=== PATIENT | female | born 1965 | race Caucasian/White ===

== ENCOUNTER → 2023-10-22 13:35 | Outpatient (REF) | payer OTHER, SELFPAY | LOC: RAD 13:35 | PROVIDERS: ATTENDING PHYSICIAN Specialist; FAMILY PHYSICIAN Nurse Practitioner Adult Health | DX: R80.9 Proteinuria, unspecified (principal); R79.89 Other specified abnormal findings of blood chemistry; I10 Essential (primary) hypertension | CPT/HCPCS: 76770 ==

== ENCOUNTER → 2024-08-27 14:14 | Outpatient (REF) | payer OTHER, SELFPAY | LOC: HWWDC 14:14 | PROVIDERS: ATTENDING PHYSICIAN Nurse Practitioner Adult Health | DX: Z12.31 Encounter for screening mammogram for malignant neoplasm of breast (principal) | CPT/HCPCS: 77063; 77067 ==

== ENCOUNTER → 2024-09-14 08:39 | Outpatient (REF) | payer OTHER, SELFPAY ==
--- NOTE | 2024-07-23 14:35 | PN.DIAED02 ---
Referral
DSME Class Series Code: [id number]
Referred For: Diabetes Self-Management Training, Medical Nutrition Therapy, Self-Blood Glucose Monitoring, Long-Term Complication Instruction, Accute Complication Instruction, Continuous Glucose Monitoring, Medication management, Disease Management
PHI Release Authorization Form Signed: Yes
Demographic
Patient's primary language-: Luxembourgish
Education: College degree
Occupation: Retired
- Social
Primary Support Person: Self
Primary Care Takers: Self
Living Arrangements: Self
- Learning Methods
Preferred Method: Lecture/audio, Hands-on demonstration
Barriers to Learning: None
Glycemic Control
- Blood Glucose Monitoring Assessment
Date: 05/28/24 (FBS 118 mg/dL)
Blood glucose monitoring at home: Yes (Old meters at home, has Dexcom G7 but wears only intermittently)
Monitor Brands: Other (multiple Contour meters at home with strips)
Frequency: rarely
Patient uses Alternate Site Testing: No
- Ketone Monitoring Assessment
Patient monitoring ketone: No
- Hyperglycemia Assessment
Experiences Hyperglycemia: No
- Hypoglycemia Assessment
Patient carries glucose source: No (reviewed hypoglycemia management and encouraged carrying a source of glucose at all times)
Patient experiences hypoglycemia: No
Patient has required treatment by others: No
- Blood Glucose Monitoring Results
Source: self-report (rarely checks blood glucose and only wears Dexcom G7 due to high cost of co-pay)
- Hemoglobin A1c
Date: 03/13/24
A1C Percentage (%): 6.8
Medical History of Diabetes
Family Diabetes History: Unknown
Previous Diabetes Education: Yes
How long ago?: 1-5 years ago
Previous visit with Dietitian: No
Complications/Comorbidity/Specialist: Cataracts (surgery 2 weeks ago and next eye scheduled for 09-22-23), Diabetic Neuropathy (pain, numbness, weakness in fingers, toes & legs), Gastrointestinal disease (reflux: Prilosec OTC), Hypertension (Atenolol
25 mg daily & linsinopril 2.5 mg daily), Hyperlipidemia (Crestor 40 mg daily), Kidney / bladder disease (followed by a rn occupational health: lisinopril 25 mg daily & Farxiga 5 mg daily), Liver disease (followed by cut and cover line worker)
- Female Specific Medical History
Currently ?: No
Current Home Medication
- Insulin Management
Patient adjusts own insulin dosages: No (Lantus 16 units once a day)
Measures
- Anthropometrics
Height: 5 ft 5 in
Actual Weight: 210 lb
- Blood Pressure / Pulse
Blood pressure: 116/73
Pulse: 80
- Diabetes Management
Medical Management for Diabetes: Complete physical exam (07-20-2024), Dental exam (06-10-24), Dilated eye exam (04-03-2024: cataract surgey 2 weeks ago), Pneumonia vaccination (07-20-2024)
Self-Care
- Tobacco Usage
Do you now, or have you ever smoked?: Never smoked
- Alcohol & Drugs Usage
Drinks Alcohol: Yes
Amount/day: Social Occasions
- Meals & Dining
Meals & Dining: Patient skips meals: Yes, Food Intolerance / Allergy: Yes (Bannanas), Cultural / Yarsanism Dietary Needs: No
Primary Food Social Psychologist: Self
Primary Buffet Runner: Self (frequently buys pre-packaged and prepared foods)
Dining Out Frequency: 4-6x per week
- Physical Activity
Physical Limitation: No
Patient participates in physical Activity: No
- Patient-Self Assessment
Diabetes Knowledge: Good
Feelings About Diabetes: Acceptance
General Health: Fair
Importance of Health: Somewhat
Stress Level: Low
Diabetes Interferes With:: Family/social activities
Barriers to Diabetes Management: Nothing
Depression Survey Score: 2
- Diabetes Identification
Carries Diabetes Identification: No
Care Plan
- Education Needs
Patient Education Needs: Diabetes disease process, Chronic complications, Acute complications, Medication, Monitoring, Physical activity, Nutritional management, Goal setting & problem solving
Recommended Diabetes Training Program based on assessment: Outpatient Diabetes Education Program
Patient Call Notes
- Patient Call Notes
Evaluated By: Registered Nurse
Patient Note Types: Patient initiated call
Notes:
Karolyn presented for her initial assessment prior to the September, DSME day session. She was referred by her primary care doctor and she had attended an DSME program 3 years ago. Her A1c from 03-13-24 is 6.8%. She currently takes the following
medications for her diabetes management: Lantus 16 units daily, Ozempic 2 mg, Farxiga 5 mg daily and Metformin 1000 mg daily. Currently, Karolyn is not wearing her Dexcom G7 sensor as she has a high co-pay therefore, only wears it sporadically. She
rarely checks her blood glucose levels but does have multiple meters at home. I discussed times to monitor the blood glucose levels as well as encouraged her to wear the Dexcom sensor more frequently to aide in her diabetes management. Karolyn lives
alone and frequently buys pre-packaged foods and does not exercise. We reinforced the importance of reviewing the food label as well as adding exercise into her daily lifestyle. Karolyn denied having frequent low blood sugars. We reviewed hypoglycemia
recognition and treatment and importance of always having rapid acting glucose if necessary, especially if she increases her activity. I gave Karolyn a new Contour next EZ glucometer and reviewed proper the set up and usage. Prescriptions to be sent
by BECKY to [facility] pharmacy.
--- NOTE | 2024-07-23 15:28 | PN.DIAED04 ---
Education Record
- Education Record
Class Attended: Other
[facility] Class [facility] Code: [id number]
Instructor: Nurse Practitioner
Pre-Program Knowledge: Demonstrates competency
Pre-Test Score (%): 87.5
Goals
- Goal 1
Being Active: Exercise 30 minutes-5 times per week (Karolyn stated she would like to start with 30 minutes 3 times a week as she is not doing any activity now)
Goals To Be Evaluated: Exercise 30 mins-5x/week
- Goal 2
Healthy Eating: Make better food choices (Currently eating out and buying pre-packaged foods to just heat up)
Goals To Be Evaluated: Make better food choices
- Goal 3
Monitoring: Monitor more often (Plan to increase use of Dexcom G7 or monitor bg daily if Dexcom is not in use)
Goals To Be Evaluated: Monitor more often
--- NOTE | 2024-09-15 13:25 | PN.DIAED14 ---
This is to notify you that your patient with diabetes, DEIDRE SAENZ ( 1965), has enrolled in our diabetes self-management classes that are being held at [facility].
These classes will include an introduction to diabetes, diet, medication, exercise and prevention of complications. At the end of our class series, you will receive a report of your patient's participation and progress for your records.
Please contact me at the [facility], , if there is any particular information regarding your patient that might be helpful to me.
Sincerely,
Peng PENA-RENU,[facility]
--- NOTE | 2024-09-15 13:25 | PN.DIAED04 ---
Addendum entered and electronically signed by Conchita Rucker 09/16/24 11:47:
Outpatient Diabetes Education Program:
Class 1 (120 minutes)
Describe the diabetes disease process and treatment options
Diabetes management
Develop personal strategies to promote health and behavior change
Integrate psychosocial adjustment for daily living
Monitor blood glucose and other parameters. Interpret and use the results for self-management decision making
Prevent, detect, and treat acute complications
Original Note:
Education Record
- Education Record
Class Attended: Class 1
DSME Class Series Code: [id number]
Instructor: Nurse Practitioner
Class Length (mins): 120
Post-Class 1 Test Score (%): 100
== END ==
LOC: DES 08:39
PROVIDERS: ATTENDING PHYSICIAN Nurse Practitioner Adult Health
DX: E11.65 Type 2 diabetes mellitus with hyperglycemia (principal)
CPT/HCPCS: 99078

== ENCOUNTER → 2024-09-21 12:53 | Outpatient (REF) | payer OTHER, SELFPAY | LOC: DES 12:53 | PROVIDERS: ATTENDING PHYSICIAN Nurse Practitioner Adult Health | DX: E11.65 Type 2 diabetes mellitus with hyperglycemia (principal) | CPT/HCPCS: 99078 ==

== ENCOUNTER → 2024-09-28 08:42 | Outpatient (REF) | payer OTHER, SELFPAY | LOC: DES 08:42 | PROVIDERS: ATTENDING PHYSICIAN Nurse Practitioner Adult Health | DX: E11.65 Type 2 diabetes mellitus with hyperglycemia (principal) | CPT/HCPCS: 99078 ==

== ENCOUNTER → 2024-10-05 09:57 | Outpatient (REF) | payer OTHER, SELFPAY ==
--- NOTE | 2024-10-06 10:26 | PN.DIAED04 ---
Education Record
- Education Record
Class Attended: Class 4
DSME Class Series Code: [id number]
Instructor: Nurse Practitioner (BECKY Moncada)
Class Curriculum:
Outpatient Diabetes Education Program:
Class 4 (120 minutes)
Develop personal strategies to promote health and behavior change
Incorporate physical activity into lifestyle
Utilize medications safety for maximum therapeutic effectiveness
Understand different medication/insulin mechanism of action
Preparing for travel
Class Length (mins): 120
Post-Class 4 Test Score (%): 100
== END ==
LOC: DES 09:57
PROVIDERS: ATTENDING PHYSICIAN Nurse Practitioner Adult Health
DX: E11.65 Type 2 diabetes mellitus with hyperglycemia (principal)
CPT/HCPCS: 99078

== ENCOUNTER → 2024-10-12 10:51 | Outpatient (REF) | payer OTHER, SELFPAY ==
--- NOTE | 2024-10-14 11:51 | PN.DIAED16 ---
This is to notify you that your patient with diabetes, DEIDRE SAENZ ( 1965), has attended the entire series of Diabetes Self-Management Education Classes.
Class 1 (120 minutes): Diabetes Overview - monitoring, stress/psychosocial adjustment, support, goal setting
Class 2 (120 minutes): Meal Planning - serving sizes, menu plans
Class 3 (120 minutes): Introduction to Carbohydrate Counting, Analyzing Food Labels
Class 4 (120 minutes): Medication, Exercise and Activity
Class 5 (120 minutes): Sick Day Management, Strategies to Reduce Complications, Problem Solving, Resources
The following behavioral goals were identified:
Exercise 30 mins-5x/week
Make better food choices
Monitor more often
A follow-up call will be made within three to six months to evaluate attainment of these goals and to check post-program Hemoglobin A1c and overall progress. All class participants are encouraged to contact me if I can be any further assistance in
learning how to manage their diabetes.
Sincerely,
Peng PENA-, [facility]
== END ==
LOC: DES 10:51
PROVIDERS: ATTENDING PHYSICIAN Nurse Practitioner Adult Health
DX: E11.65 Type 2 diabetes mellitus with hyperglycemia (principal)
CPT/HCPCS: 99078

== ENCOUNTER → 2024-10-29 12:01 | Outpatient (REF) | payer OTHER, SELFPAY | LOC: HWRAD 12:01 | PROVIDERS: ATTENDING PHYSICIAN Nurse Practitioner Adult Health | DX: Z01.818 Encounter for other preprocedural examination (principal); R09.89 Other specified symptoms and signs involving the circulatory and respiratory systems | CPT/HCPCS: 71046; 93005 ==

== ENCOUNTER → 2024-11-17 10:33 | Outpatient (REF) | payer OTHER, SELFPAY | LOC: RAD 10:33 | PROVIDERS: ATTENDING PHYSICIAN Nurse Practitioner Adult Health | DX: I77.810 Thoracic aortic ectasia (principal); R09.89 Other specified symptoms and signs involving the circulatory and respiratory systems | CPT/HCPCS: 71270; Q9967 ==

== ENCOUNTER → 2025-02-23 17:06 | Outpatient (REF) | payer OTHER, SELFPAY | LOC: RAD 17:06 | PROVIDERS: ATTENDING PHYSICIAN Internal Medicine Critical Care Medicine; FAMILY PHYSICIAN Nurse Practitioner Adult Health | DX: J40 Bronchitis, not specified as acute or chronic (principal) | CPT/HCPCS: 71250 ==

== ENCOUNTER → 2025-04-12 11:06 | Outpatient (REF) | payer OTHER, SELFPAY | LOC: HWRCS 11:06 | PROVIDERS: ATTENDING PHYSICIAN Internal Medicine Cardiovascular Disease; FAMILY PHYSICIAN Nurse Practitioner Adult Health | DX: R06.02 Shortness of breath (principal) | CPT/HCPCS: 93306 ==

== ENCOUNTER → 2025-05-05 07:32 | Outpatient (REF) | payer OTHER, SELFPAY | LOC: HWRCS 07:32 | PROVIDERS: ATTENDING PHYSICIAN Internal Medicine Cardiovascular Disease; FAMILY PHYSICIAN Nurse Practitioner Adult Health | DX: R06.02 Shortness of breath (principal) | CPT/HCPCS: 78452; 93017; A9500; J2785 ==